=== PATIENT | male | born 1940 | race Caucasian/White ===

== ENCOUNTER → 2018-08-30 | Outpatient (CLI) | payer MEDICARE, OTHER ==
[~2018-08-30] MED LIST: CIPRO 500MG TA500 MG PO; GLUCOSAMINE500 M1 PO; VITAMIN B COMPL1 SGL PO; VITAMIN C500 MG PO; [UNRECOGNIZED DRUG - CODE] PO
== END ==
LOC: COL.LAB 12:54
DX: Z01.812 Encounter for preprocedural laboratory examination (principal); M25.852 Other specified joint disorders, left hip